=== PATIENT | male | born 1970 | race Caucasian/White ===

== ENCOUNTER 2024-11-27 08:14 | Emergency (ER) | payer MEDICAID ==
[~2024-11-27] VITALS: Ht 170.2 cm; Wt 61.4 kg
[2024-11-27 09:41] VITALS: BP 137/97; PULSE 79; RESP 16; TEMP 98.6; O2SAT 97
== END 2024-11-27 09:41 | disposition home or self-care (01) ==
LOC: ER 08:16
DX: F10.10 Alcohol abuse, uncomplicated (principal); Y90.9 Presence of alcohol in blood, level not specified
CPT/HCPCS: 99281

== ENCOUNTER 2025-04-02 23:33 | Emergency (ER) | payer MEDICAID ==
[~2025-04-02] VITALS: Ht 172.7 cm; Wt 62.1 kg
--- NOTE | 2025-04-03 00:30 | RADIOLOGY REPORT ---
CLINICAL INDICATION: ARM PAIN TECHNIQUE: 2 views DI FOREARM,INCL.ONE JOINT Comparison: None FINDINGS/IMPRESSION: : Mildly displaced fractures of the coronoid process and ulnar styloid, acute and remote appearing resp ectively. Positive elbow joint effusion and soft tissue swelling. No dislocation. No additional fracture. Mild degenerative changes of the elbow and wrist. Medial epicondylar entheso phyte.
--- NOTE | 2025-04-03 00:33 | RADIOLOGY REPORT ---
CLINICAL INDICATION: ELBOW PAIN TECHNIQUE: 3 views DI ELBOW, COMPLETE (3VW MIN) Comparison: Same day left forearm radiographs FINDINGS/IMPRESSION: : Redemonstrated mildly displaced coronoid fracture and joint effusion. Surrounding soft tissue swelli ng. No dislocation or additional identified fracture. Small medial and lateral epicondylar enthesoph ytes.
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
[2025-04-03] MEDS: TETanus/Pertussis (Acell)/Diphther VAC/PF (Tdap-Adult) 0.5ml syringe IMVAC ONE (03:21)
[2025-04-03 03:23] VITALS: BP 134/82; PULSE 88; RESP 16; TEMP 98.1; O2SAT 98
== END 2025-04-03 03:30 | disposition home or self-care (01) ==
LOC: ER 23:33
DX: S42.402A Unspecified fracture of lower end of left humerus, initial encounter for closed fracture (principal); X58.XXXA Exposure to other specified factors, initial encounter; Y93.9 Activity, unspecified; Y92.89 Other specified places as the place of occurrence of the external cause; Y99.8 Other external cause status
CPT/HCPCS: 29105; 73080; 73090; 90471; 90715; 99284; A4565; A6446

== ENCOUNTER 2025-05-06 18:04 | Emergency (ER) | payer MEDICAID ==
[~2025-05-06] VITALS: Ht 172.7 cm; Wt 49.1 kg
[2025-05-06 19:07] VITALS: BP 119/73; PULSE 78; RESP 15; O2SAT 97
--- NOTE | 2025-05-06 21:39 | Physician Documentation ---
History of Present Illness General Chief Complaint: See Chief Complaint Stated Complaint: GROIN PAIN Time Seen by MD: 19:41 History of Present Illness Initial Comments 54-YEAR-OLD MALE WITH ACUTE ON CHRONIC HISTORY OF RIGHT GREATER THAN LEFT INGUINAL HERNIAS PRESENTS TO THE EMERGENCY DEPARTMENT FOR INTERVAL EVALUATION HE AWAITS FOR YOUR ELECTIVE SURGICAL CONSULTATION. DENIES ANY NAUSEA OR VOMITING AND/OR CHANGE IN CHARACTERISTICS. DOES REPORT THAT HIS RIGHT GREATER THAN LEFT AT TIMES DOES REQUIRING SELF REDUCTION. OTHERWISE NO CHANGE IN CHARACTER. Medication Reconciliation Allergies: Coded Allergies: No Known Allergies (Unverified , 05/06/25) Past Medical History Past Medical History: No Pertinent History Past Surgical History: noncontributory Alcohol Use: Heavy Drug Use: none Lives In: Home Review of Systems All Other Systems at this time: Reviewed and Negative GI: Reports: abdominal pain; Denies: nausea, diarrhea Physical Exam Physical Exam Vital Signs: Temperature: 97.6, Source: Temporal, Heart Rate: 78, Respiratory Rate: 15, BP: 119/73, Pulse Oximetry: 97, Weight: 49.150 General Appearance: alert, WD/WN, no apparent distress Head: normal inspection Face: normal inspection Pupils/EOM/Fundus: PERRLA Respiratory: lungs clear Gastrointestinal: other (NO MASS OR BOWEL TO THE RIGHT OR LEFT INGUINAL AREAS. NO LESIONS, ABRASIONS YET MILD REPRODUCIBLE TENDERNESS WITH DEEP PALPATION) Extremities: normal range of motion Neurologic: oriented x4 Motor / Sensory: no motor deficit Psychiatric: normal mood/affect Skin: normal color Progress Results/Orders Results/Orders Vital Signs 05/06/25 05/06/25 19:07 21:42 Temp 97.6 97.6 Pulse 78 Resp 15 B/P (MAP) 119/73 Pulse Ox 97 Medical Decision Making Differential Diagnosis 54-YEAR-OLD MALE WITH ACUTE ON CHRONIC HISTORY OF BILATERAL INGUINAL HERNIAS RIGHT GREATER THAN LEFT. HE WAS PENDING SURGICAL EVALUATION YET HAD PROBLEMS WITH HIS INSURANCE. HE RECEIVED HIS CARE FROM THE [facility]. PRESENTS TO THE EMERGENCY DEPARTMENT TODAY FOR EVALUATION OF PRIMARILY WITH A RIGHT INGUINAL HERNIA AND BECAUSE OF ITS RECURRENCE WITHOUT INCREASED PAIN. HE IS ABLE TO SELF REDUCED. ED COURSE: NO CLINICAL SUSPICION OF THE PHYSICAL EXAM WITH INCARCERATION OR STRANGULATION. HERNIAS NOT NEEDING REDUCTION. DISCUSSED TREATMENT CARE PLAN AND WILL RECOMMEND ON DISCHARGE SUMMARY THAT PATIENT SHOULD RECEIVE ELECTIVE SURGICAL REFERRAL FOR CONSIDERATION OF REPAIR. SAFELY DISCHARGED FROM THE EMERGENCY DEPARTMENT ALL ADDITIONAL RESOURCES ADDRESSED. Departure Disposition: HOME / SELF CARE / HOMELESS Impression: Primary Impression: Bilateral inguinal hernia Qualified Codes: K40.21 - Bilateral inguinal hernia, without obstruction or gangrene, recurrent Condition: Stable Additional Instructions: Please see line herself with your primary care physician for consideration of surgical referral for elective bilateral inguinal hernia repair. Continue to take Tylenol and/or ibuprofen periodically for pain. Return to the emergency department one unable to reduce urine he has. Thank you for visiting emergency department [facility]. Referrals: NO PRIMARY CARE PROVIDER (PCP) Education Educated: Patient Educated regarding: diagnosis, treatment, prognosis, need for follow up Signature Scribe Signature: No scribe Attestation: The note accurately reflects work and decisions made by me.David Carlson MD 05/07/25 02:55 JEAN NICHOLAS PAC May 06, 2025 21:39 DAVID CARLSON MD May 07, 2025 02:55
[2025-05-06 21:42] VITALS: TEMP 97.6
== END 2025-05-06 21:44 | disposition home or self-care (01) ==
LOC: ER 18:05
DX: K40.20 Bilateral inguinal hernia, without obstruction or gangrene, not specified as recurrent (principal)
CPT/HCPCS: 99282